=== PATIENT | female | born 1990 | race African-American/Black ===

== ENCOUNTER 2022-06-21 20:19 | Emergency (ER) | payer MEDICAID ==
[~2022-06-21] VITALS: Ht 167.6 cm; Wt 63.1 kg
[2022-06-21 20:42] VITALS: BP 122/75
[2022-06-21] MEDS ORDERED: ASPIRIN 81MG TABLET PO ONE (21:00)
[2022-06-21] MEDS ORDERED: HYDROCODONE/ACETAMINOPHEN 10/325MG TABLET PO ONE (21:15)
[2022-06-21 21:35] LABS: HEMATOCRIT. 26.3 % (36.0-48.0); HEMOGLOBIN. 7.8 g/dL (12.0-16.0); MEAN CORPUSCULAR HEMOGLOBIN 18.5 pg (28.0-32.0); MEAN CORPUSCULAR VOLUME 62.6 fL (81.0-99.0); MEAN PLATELET VOLUME 8.8 fl (7.4-10.4); PLATELET 350 x1000/uL (130-400); RED BLOOD CELL COUNT 4.19 mill/uL (4.2-5.4); RED CELL DISTRIBUTION WIDTH 20.9 % (11.6-14.6)
[2022-06-21 21:42] LABS: CHLORIDE 106 mEq/L (98-107)
[2022-06-21 22:10] LABS: PLATELET ESTIMATE NORMAL
[2022-06-22] MEDS ORDERED: ASPIRIN 81MG TABLET PO NR (00:15)
[2022-06-22] MEDS ORDERED: HYDROCODONE/ACETAMINOPHEN 10/325MG TABLET PO NR (00:15)
== END 2022-06-22 01:11 | disposition home or self-care (01) ==
LOC: ER 20:19
DX: D64.9 Anemia, unspecified (principal); R07.89 Other chest pain; R94.31 Abnormal electrocardiogram [ECG] [EKG]
CPT/HCPCS: 36415; 71045; 80053; 83880; 84484; 85025; 85379; 93005; 99285; Z7610